=== PATIENT | male | born 1960 | race Caucasian/White ===

== ENCOUNTER 2018-06-09 08:43 | Inpatient (IN) ==
[~2018-06-09 08:43] MED LIST: ROPIVACAINE HCL/PF 100 MG, EPINEPHrine 0.2 MG, KETOROLAC TROMETHAMINE 30 MG in NORMAL S... IJ PRN; TRANEXAMIC ACID 1,000 MG in NORMAL SALINE 100 ML IV PRN; ceFAZolin SODIUM 1 GM VIAL IV PRN
[2018-06-09] MEDS: RINGER'S SOLUTION,LACTATED 1,000 ML IV PRN ×2 (09:45→12:05)
--- NOTE | 2018-06-09 10:27 | ANES ---
Anesthesia Pre Procedure Eval Vitals/Labs: Last Vital Signs Temp 36.5 C 06/09/18 08:55 Pulse 86 06/09/18 08:55 Resp 18 06/09/18 08:55 BP 122/93 H 06/09/18 08:55 Pulse Ox 97 06/09/18 08:55 HOME MEDICATIONS pravastatin 40 mg tablet 40 mg PO HS 05/05/18 [Last Taken 06/07/18] amlodipine 10 mg tablet 10 mg PO DAILY 90 Days #90 tab 05/13/18 [Last Taken 06/08/18] hydrocodone 5 mg-acetaminophen 325 mg tablet 1 tab PO Q6H PRN 15 Days #60 tab 05/13/18 [Last Taken 06/08/18] lansoprazole 30 mg capsule,delayed release 30 mg PO DAILY 30 Days #30 cap 05/13/18 [Last Taken 06/08/18] levothyroxine 75 mcg tablet 75 mcg PO DAILY 90 Days #90 tab 05/13/18 [Last Taken 06/08/18] sucralfate 1 gram tablet 1 g PO HS 12 Days #12 tab 05/13/18 [Last Taken 06/07/18] tamsulosin 0.4 mg capsule 0.4 mg PO DAILY 05/13/18 [Last Taken 06/08/18] zolpidem 10 mg tablet 10 mg PO HS 05/13/18 [Last Taken 06/08/18] Allergies/Adverse Reactions: Allergies Allergy/AdvReac Type Severity Reaction Status Date / Time morphine AdvReac Mild nausea, Verified 06/09/18 09:13 itching - Planned Procedure Planned Procedure: Arthroplasty Total Hip Cement/Non-Cement Medication List Reviewed:: Yes Allergies Verified: Yes Medical History (Last Reviewed 06/09/18 @ 10:26 by Claudy Funez CRNA) Claustrophobia Former smoker Hypothyroid Uses alcohol occasionally wears reading glasses GERD (gastroesophageal reflux disease) Onset Date: Unknown H/O nephrolithotomy with removal of calculi Onset Date: Unknown uihc Hyperlipidemia Onset Date: Unknown Hypertension Onset Date: Unknown Kidney stone Onset Date: Unknown Left hip pain Onset Date: ~2017 Osteoarthritis Onset Date: Unknown DJD of shoulder Onset Date: Unknown right Right shoulder pain Onset Date: Unknown Surgical History (Last Reviewed 06/09/18 @ 10:26 by Claudy Funez CRNA) History of cholecystectomy History of esophagogastroduodenoscopy (EGD) H/O colonoscopy Onset Date: [address] Cooper [facility], x2 H/O shoulder surgery Onset Date: 2004 Ball resurfacing 2004, [place] 1985 dislocated shoulder due to parachute injury, right History of right hip replacement Onset Date: Unknown uihc Family History (Last Reviewed 06/09/18 @ 10:26 by Claudy Funez CRNA) Father Prostate cancer Alzheimers disease Heart problem Mother noncancerous tumor brainstem Sister Alive and well Son defective heart valve Son Alive and well - Family Anesthesia History Family History:: no untoward family reactions to anesthesia - Airway/Neck/Teeth Within Normal Limits:: Yes Teeth Condition: Intact Denture Type: None Neck Exam: full range of motion, normal inspection Mallampatti Score: 2 Thyromental (T-M) distance: > 6 cm Mandibulo Hyoid distance: > 3 cm - Respiratory Respiratory: lungs clear, no respiratory distress Smoking Status: Never smoker Sleep Apnea currently treated: No Sleep Apnea by current assessment: No - Cardiovascular Patient History - Cardiac/Respiratory: Hypertension Tolerates Activity: Good Heart Sounds: S1 & S2, Regular - Anesthesia Assessment and Plan ASA Class: PS, II Anesthesia Type Plan: Spinal
[2018-06-09] MEDS ORDERED: ZOLPIDEM TARTRATE 5 MG TABLET PO PRN (12:33)
[2018-06-09] MEDS ORDERED: diphenhydrAMINE HCL 50 MG/ML VIAL IV PRN (12:33)
[2018-06-09] MEDS ORDERED: MAGNESIUM HYDROXIDE 30 ML UDC PO PRN (12:33)
[2018-06-09] MEDS ORDERED: HYDROmorphone HCL 1 MG/ML DISP.SYRIN IV PRN (12:33)
[2018-06-09] MEDS ORDERED: ACETAMINOPHEN 500 MG TABLET PO PRN (12:33)
[2018-06-09] MEDS ORDERED: DEXTROSE 5%-LACTATED RINGERS 1,000 ML IV PRN (12:33)
--- NOTE | 2018-06-09 12:39 | OR ---
Operative Report - Dictated Report Narrative: Date: 06/09/2018 Preoperative diagnosis: Left hip degenerative joint disease. Postoperative diagnosis: Left hip degenerative joint disease. Procedure: Left Total hip arthroplasty. Surgeon: Johan Aquino M.D. Cook Vegetable: Albaro Shah PA-C (provided essential set of skilled knowledgeable hand which assisted with transfer, positioning, preparation, retraction, manipulation, irrigation, suturing, and dressings all of which could not be provided by the surgical crew that was available) Anesthesia: Spinal and local periarticular joint injection. Complications: None Specimens: Bone for disposal. Estimated blood loss: 200 milliliters. Retained implants: Depuy Imperial size 5 femoral stem high offset. Size 56 millimeter outside diameter 3-hole [place] Gription acetabular cup. 56 millimeter outside by 36 millimeter inside diameter highly cross-linked acetabular liner. 36 millimeter diameter +8.5 millimeter ceramic femoral head. Cancellous 6.5mm screw 35 millimeter length Indications: Mr. Jaramillo is a 57-year-old gentleman who has had long-standing left hip pain and arthrosis. This patient was followed in my clinic for period of time with significant complaints of left hip pain consistent with arthritic changes. He failed conservative measures including but not limited to activity modification, passage of time, medications, and other conservative measures. Patient wished to proceed with surgical treatment. The risks, benefits, and alternatives were discussed in clinic. The risks of , blood clots, bleeding, infection, nerve/tendon blood vessel/ injury, malposition of components, dislocation and/or instability of joint, intraoperative fracture, postoperative limited range of motion, persistent pain, failure of components, and need for additional procedures. Patient wished to proceed. Consent was obtained after answering all questions. Procedure: After marking the correct extremity on the floor, the patient was taken to the operating room. A timeout was performed. IV antibiotics consisting of Ancef were administered prior to the procedure. A spinal anesthetic was induced by anesthesia. A Escalante catheter was inserted. The patient was then transitioned to a lateral position on a well-padded pegboard. An axillary roll was placed. The head was in neutral position. The non- operative down leg was well-padded with SCD and SHALOM hose in place. The arms were supported and padded to protect from any undue pressure on the bony prominences and nerves. A well-padded anterior and posterior pelvic and chest posts were secured in order to maintain a stable position of the pelvis. This was placed so that the pelvis was perpendicular to the floor. The body was in line with the pelvis. Once it was felt that we had protected all the bony prominences and the patient was well secured with a safety belt as well, the leg was pre-scrubbed with alcohol, prepped and draped in a standard sterile fashion. A standard anterior lateral hip incision was marked out over the greater trochanter. Ioban drapes were then placed. The skin incision was then made. Sharp dissection with a scalpel utilizing cautery for hemostasis was carried out down to the gluteus and iliotibial band fascia. This was split in line with the skin incision. The greater trochanter bursa was excised. The anterior and posterior margins of the abductor tendon were identified. The anterior 1/2-1/3 of the tendon was tagged and reflected off the greater trochanter leaving a sleeve of tendon for repair at the completion of the case. This exposed the underlying hip joint capsule. A limb length stitch was placed in the skin and referencedd off a karolina on the greater trochanter for evaluation of intraoperative limb lengths. An inverted T-type capsulotomy was made extending this up to the brim of the acetabulum. Using Homans to assist with elevation of the soft tissues off the anterior, superior, and inferior aspects of the femoral neck, the hip was then placed in a figure 4 position and the femoral head was dislocated. With the leg in an externally rotated and adducted position, the cutting flag was utilized in order to karolina for a standard femoral neck cut approximately a fingerbreadth above the level of the lesser trochanter. This was done with reference to pre-operative films and overall alignment. This was done while protecting the surrounding soft tissues with Homans. The femoral head was then removed and sized for guidance on preparation of the acetabulum. It was noted that there was loss of articular cartilage on both the femoral head and weightbearing portions of the acetabulum. We then returned the leg to the table and turned our attention to the acetabulum. While protecting the surrounding soft tissues, the labrum and remaining tissue in the fovea were excised using a scalpel and cautery. A series of reamers up to size 56 millimeter were utilized to prepare the acetabulum. The final reamer had good purchase and exposed the bleeding subchondral bone. The acetabulum was then thoroughly irrigated ensuring that all bony and cartilaginous materials were removed, and the final acetabular shell was impacted into place. This was placed in approximately 45 degrees of abduction and 20 degrees of anteversion utilizing the outrigger and body axis for alignment. This had a good press fit. 1 6.5mm cancellous screw was placed in the superior posterior quadrant of the acetabulum. The shell was then thoroughly irrigated and the final polyethylene was impacted into place ensuring that it seated completely. This was then protected with a sponge while we returned our attention to the femur. With the leg in a figure 4 position, utilizing Homans for soft tissue protection, a box cutting osteotome, followed by Charnley awl, followed by serial reamers and broaches were utilized in order to prepare the femur. It was found that a size 5 broach gave good axial and rotational stability. The calcar reamer was utilized in order to clean up the cut edges. The proximal femur was visualized to ensure that there were no signs of fracture. A series of heads and necks were trialed. It was found that a high offset neck and a + 8.5 femoral head gave good overall stability. There was minimal longitudinal instability. With the leg in the position of sleep, the femoral head was well covered. Hip range of motion was able to reach full extension and external rotation to greater than 75 degrees prior to impingement along the posterior acetabulum. The hip was able to be flexed to greater than 90 degrees with internal rotation greater than 60 degrees prior to anterior impingement. The limb lengths were near equal based on comparison to the contralateral side and the prior placed limb length stitch. At this point it was felt these were the appropriately sized femoral components as well as neck and femoral head. The trial implants were removed. The femur was thoroughly irrigated. The final implants were impacted into place, and the hip was reduced. After ensuring that there was no damage to the proximal femur, the standard periarticular joint injection of ropivacaine, Toradol, and epinephrine were injected into the joint capsule and surrounding soft tissues. Anesthesia then administered intravenous tranexamic acid. The capsule was repaired with a single interrupted #1 Vicryl. The abductor tendon was repaired to the greater trochanter utilizing #5 Ethibond through drill holes. This was oversewn with #1 Vicryl. The fascia was closed with interrupted #1 Vicryl. The wounds were thoroughly irrigated as we closed in layers. The deep and subcutaneous fat layers were closed with 0 and 3-0 Vicryl respectively. The subcutaneous tissue was closed with a running 3-0 Vicryl and the skin with mariusz. All sponge, needle, blade, and instrument counts were correct prior to closing the wounds. Sterile dressings consisting of Xeroform, 4 x 4's, and tape were applied. The patient was awoken and transferred to her hospital bed and then to the postanesthesia care unit in stable condition. Postoperative condition: The plan is to admit to the medical/surgical inpatient floor postoperatively. There will be a projected 1 to 3 day hospital stay. Postoperatively 24 hours of IV antibiotics, pain control, physical therapy, occupational therapy, and medical comanagement will be utilized. Patient will be weightbearing as tolerated with anterior hip precautions. Postoperative films will be obtained in the recovery room.
--- NOTE | 2018-06-09 12:53 | ANES ---
Post Anesthesia Discharge - Transfer of Care Transfer of Care handoff given to nurse: Yes - Discharge from PACU Discharge from PACU when meets criteria: Yes - Discharge to ASU Discharge to ASU-no complications/pt stable: Yes
[2018-06-09] MEDS: oxyCODONE HCL/ACETAMINOPHEN 1 TAB TABLET PO PRN ×3 (13:45→21:47)
[2018-06-09] MEDS: KETOROLAC TROMETHAMINE 15 MG/ML VIAL IV SCH ×2 (13:46→20:08)
--- NOTE | 2018-06-09 15:37 | ANES ---
Post Anesthesia Assessment - Vital Signs Vitals: Last Vital Signs Temp 36.6 C 06/09/18 15:12 Pulse 82 06/09/18 15:12 Resp 17 06/09/18 15:12 BP 158/90 H 06/09/18 15:12 Pulse Ox 100 06/09/18 15:12 Airway Patency: Normal - Mental Status Level Of Consciousness: Awake - Pain Level Pain Score: 0 - N/V Assessment Nausea/Vomiting Presence: None Dehydration:: No
[2018-06-09] MEDS: HYDROmorphone HCL 1 MG/ML DISP.SYRIN IV PRN ×3 (16:09→23:47)
[2018-06-09] MEDS: ceFAZolin SODIUM 1 GM in DEXTROSE 5 % IN WATER 100 ML IV SCH ×4 (16:10→21:47)
[2018-06-09] MEDS: MAG HYDROX/ALUMINUM HYD/SIMETH 30 ML UDC PO PRN (18:32)
[2018-06-09] MEDS ORDERED: TAMSULOSIN HCL 0.4 MG CAP.SR.24H PO SCH (19:00)
[2018-06-09] MEDS ORDERED: SIMVASTATIN 20 MG TABLET PO SCH (21:00)
[2018-06-09] MEDS ORDERED: SENNOSIDES/DOCUSATE SODIUM 1 TAB TABLET PO SCH (21:00)
[2018-06-09] MEDS ORDERED: ZOLPIDEM TARTRATE 10 MG TABLET PO SCH (21:00)
[2018-06-09] MEDS ORDERED: SUCRALFATE 1 G TABLET PO SCH (21:00)
[2018-06-09] MEDS: ONDANSETRON HCL/PF 2 MG/ML VIAL IV PRN (21:52)
[2018-06-10] MEDS: KETOROLAC TROMETHAMINE 15 MG/ML VIAL IV SCH ×3 (02:06→14:27)
[2018-06-10] MEDS: oxyCODONE HCL/ACETAMINOPHEN 1 TAB TABLET PO PRN ×4 (02:06→14:24)
[2018-06-10] MEDS: MAG HYDROX/ALUMINUM HYD/SIMETH 30 ML UDC PO PRN (02:09)
[2018-06-10] MEDS: ceFAZolin SODIUM 1 GM in DEXTROSE 5 % IN WATER 100 ML IV SCH ×2 (04:17)
[2018-06-10 05:39] LABS: Hematocrit 27.8 % (42.0-52.0); Hemoglobin 8.8 gm/dL (13.5-18.0); Mean Cell Volume 80.8 fl (78-100); Mean Corpuscular Hemoglobin 25.6 pg (27-31); Mean Corpuscular Hgb Conc 31.7 g/dl (32-36); Mean Platelet Volume 10.5 fl (8-11.3); Platelet Count 148 K/mm3 (150-450); Red Blood Count 3.44 M/mm3 (4.7-6.0); Red Cell Distribution Width 20.3 % (11.5-14.0); White Blood Count 5.1 K/mm3 (4.0-10.5)
[2018-06-10 05:40] LABS: Anion Gap 6.9 mmol/L (6.8-13.8); BUN/Creatinine Ratio 17.9 (9.0-21.6); Calcium * 8.2 mg/dL (7.9-10.9); Carbon Dioxide 29.9 mmol/L (24-32.6); Potassium 3.8 mmol/L (3.4-4.6)
[2018-06-10] MEDS ORDERED: PANTOPRAZOLE SODIUM 40 MG TABLET.EC PO SCH (07:00)
[2018-06-10] MEDS ORDERED: LEVOTHYROXINE SODIUM 75 MCG TABLET PO SCH (07:00)
[2018-06-10] MEDS ORDERED: amLODIPine BESYLATE 10 MG TABLET PO SCH (09:00)
[2018-06-10] MEDS ORDERED: ENOXAPARIN SODIUM 40 MG/0.4 ML SYRG SC SCH (11:33)
--- NOTE | 2018-06-10 12:43 | DS ---
(1) Status post total hip replacement, left Problem: Acute (2) Osteoarthritis of hip Problem: Chronic Qualifiers: (3) Acute blood loss anemia Problem: Acute (4) Hypertension Problem: Chronic (5) Hyperlipidemia Problem: Chronic Description of Stay: Mr. Jaramillo was admitted to the floor after undergoing left total hip arthroplasty. Tolerated this well. Was admitted to the floor postoperatively for 24 hours of IV antibiotics, pain control, medical comanagement, and occupational and physical therapy. OT and PT were consulted to assist with activities of daily living and ambulation. Was made weightbearing as tolerated with range of motion as tolerated. Pain was initially controlled with IV regimen. This was transitioned to oral once tolerating a by mouth intake. Was resumed on home diet and medications. Had a Escalante catheter inserted and the operating room which was discontinued on postoperative day 1. . Lovenox SCD and SHALOM hose were utilized for DVT prophylaxis. Vital signs remained stable to the hospital course. Serial labs were obtained which showed a final hemoglobin of 8.8 grams. BMP was reviewed and was stable. Physical examination throughout the hospital course showed an extremity that had sensation that was intact to light touch, palpable pulses, a benign wound, motor intact to the toes, ankle, and knee. Once an oral pain regimen was tolerated and physical therapy goals were met, it was felt that they were stable for discharge to home. Instructions: Continue with weightbearing as tolerated and range of motion as tolerated. Keep incision clean and dry . If you note any drainage or for comfort you can cover with dry gauze and tape. Change every 2-3 days as needed. Continue with physic al therapy. Resume home diet. Report any fever over 101.5 Fahrenheit, uncontrolled pain, increased drainage, foul odor of drainage, new or increased calf pain or shortness of breath, or any other significant complaints. A 325mg dialy aspirin will be started after finishing anticoagulation if not allergic. Continue with SHALOM hose on the operative extremity until instructed otherwise. No driving until instructed otherwise. Follow up in approximately 10-14 days. Procedures Performed: see notes below List Procedures: Left total hip arthroplasty Results and Findings: Lab Pending Results 06/10/18 05:05: WBC 5.1, RBC 3.44 L, Hgb 8.8 L, Hct 27.8 L, MCV 80.8, MCH 25.6 L, MCHC 31.7 L, RDW 20.3 H, Plt Count 148 L, MPV 10.5 06/10/18 05:05: Sodium 138, Plasma Sodium 138, Potassium 3.8, Chloride 105, Carbon Dioxide 29.9, Anion Gap 6.9, BUN 21, Creatinine 1.17, Est GFR (Non-Af Amer) 69, BUN/Creatinine Ratio 17.9, Random Glucose 115 H, Calcium 8.2 Discharge Location: Home Disposition: Home self-care Condition: Good Discharge Activity: Activity as tolerated, Other - with anterior hip precautions utilizing a walker Additional Patient Instructions (free text): Follow up with Orthopedic Dr. Aquino 06/24 at 9:15am. Prescriptions (Any new or edited meds): Enoxaparin Sodium [Lovenox] 40 mg SC Q24H #7 disp.syrin oxyCODONE HCL [Oxycontin] 10 mg PO BID@08,1999 #20 tab.sr.12h oxyCODONE HCL/ACETAMINOPHEN [Percocet 5 MG/325 MG] 2 tab PO Q4H PRN #90 tablet PRN Reason: Moderate Pain (Pain Scale 4-6) Sennosides/Docusate Sodium [Senokot-S] 2 tab PO HS #30 tablet Complete Home Medications List: Complete Home Medication List: pravastatin 40 mg tablet 40 mg PO HS 05/05/18 amlodipine 10 mg tablet 10 mg PO DAILY 90 Days #90 tab 05/13/18 lansoprazole 30 mg capsule,delayed release 30 mg PO DAILY 30 Days #30 cap 05/13/18 levothyroxine 75 mcg tablet 75 mcg PO DAILY 90 Days #90 tab 05/13/18 sucralfate 1 gram tablet 1 g PO HS 12 Days #12 tab 05/13/18 tamsulosin 0.4 mg capsule 0.4 mg PO DAILY 05/13/18 zolpidem 10 mg tablet 10 mg PO HS 05/13/18 Enoxaparin Sodium [Lovenox] 40 mg SC Q24H #7 disp.syrin 06/10/18 Sennosides/Docusate Sodium [Senokot-S] 2 tab PO HS #30 tablet 06/10/18 oxyCODONE HCL [Oxycontin] 10 mg PO BID@08,1999 #20 tab.sr.12h 06/10/18 oxyCODONE HCL/ACETAMINOPHEN [Percocet 5 MG/325 MG] 2 tab PO Q4H PRN #90 tablet 06/10/18
[2018-06-10] MEDS: ONDANSETRON HCL/PF 2 MG/ML VIAL IV PRN (14:24)
[2018-06-10 15:26] VITALS: BP 115/69
== END 2018-06-10 15:24 | disposition home or self-care (01) | DRG 470 ==
LOC: MS 08:43
PROVIDERS: ADMIT Orthopaedic Surgery; ATTEND Orthopaedic Surgery
CPT/HCPCS: 36415; 73502; 80048; 85027; 97110; 97116; 97161; 97166; 97530; 97535; J2405